=== PATIENT | female | born 1965 | race Caucasian/White ===

== ENCOUNTER 2016-09-11 19:09 | Emergency (ER) | payer MEDICARE, MEDICAID ==
[~2016-09-11] VITALS: Ht 160 cm; Wt 96.2 kg
[~2016-09-11 19:09] MED LIST: ALBUTEROL2 PUFFS/17 IN; ALPRAZOLAM1 MG PO; AMOXICILLIN 50500 MG PO; AMOXIL500 MG PO; AZITHROMYCIN250 MG PO; DIFLUCAN150 MG PO; FLEXERIL10 MG PO; GABAPENTIN300 MG PO; HORMONE PATCH TD; LODINE200 MG PO; LORTAB 5/500 501 TAB PO; LORTAB 500 MG-71 TAB PO; MEDROL 4MG. DOSE4 MG PO; MOBIC7.5 MG PO; NAPROSYN 375MG375 MG PO; NOMEDS XX; NORCO 325 MG-101 TAB PO; OXYBUTYNIN CHLOR5 MG PO; PERCOCET 10 MG1 EACH PO; PERCOCET 5/3251 EACH PO; PREDNISONE 1MG.1 MG PO; PROZAC 20MG CAP20 MG PO; TOPAMAX50 MG PO; TRAMADOL 50MG T50 MG PO; VICODIN 5/500 T1 TAB PO; XANAX0.5 MG NG; [UNRECOGNIZED DRUG - OTHER] PO
[2016-09-11 19:39] LABS: HEMOGLOBIN 13.6 g/dL (12.2-16.2); LYMPH # 1.6 K/mm3 (0.7-4.5); LYMPH % 32.6 % (10-50.0)
--- NOTE | 2016-09-11 19:46 | Emergency Room Report ---
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 N Clinical Suspician of Infection? N Mental Status: 1 - Regular (Normal Baseline) Sepsis Risk:Low Sepsis Risk Have you (or family members/close friends) recently traveled outside the [place]? N If Yes, where/when: Have you had exposure to infectious disease within the past month? N TB? Other? Specify: Source patient, RN notes reviewed, old records Exam Limitations clinical condition Comment pt with rt sided rib pain over the last 3 days with hx of fall about 1 week ago with no fever or hemoptysis Cardiac Chest Pain Chest pain indicative of cardiac No Timing/Duration this evening Severity moderate ALLERGIES Coded Allergies: acetaminophen (From DARVOCET-N) (Mild, 09/11/16) erythromycin base (Mild, 09/11/16) propoxyphene (From DARVOCET-N) (Mild, 09/11/16) Home Medications Reported Medications Oxycodone 10 Mg\[id number] (Oxycodone-Acetaminophen 10-325) 1 TAB PO TID Gabapentin (Gabapentin 300MG) 300 MG PO TID History Medical History General CAD? No Angina: Yes [place]: No Hypertension? No Hyperlipidemia? No CHF? No DVT? No PE? No COPD? No Asthma? No Anemia? No GERD? No Gastric ulcers? No GI Bleed? No Hernia? No Thyroid Problems? No Hypothyroidism? No CVA? No Seizures? No Diabetes? No Renal Insuffiency? No End Stage Renal Disease? No UTI? Yes Stones? Yes GB Disease: Yes Nephritic Syndrome? No Asplenia? No Hepatitis? No Sickle Cell Disease? No Arthritis? No Migraines? No Cataracts? No Glaucoma? No MRSA? No HIV? No TB? No Anxiety? No Depression? No Cancer? Yes Site: UTERINE More? No Immunization Hx DT/Tetanus 05/24/10 Flu THIS YR Pneumonia NEVER Surgical Hx Previous Surgery?Y Hysterect R. 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 Respiratory denies cough, denies shortness of breath, denies wheezing Cardiovascular see HPI, chest pain, denies palpitations, denies syncope Gastrointestinal denies abdominal pain, denies diarrhea, denies vomiting Genitourinary denies: dysuria, frequency, hesitancy, hematuria. Musculoskeletal denies back pain, denies joint pain, denies joint swelling, denies neck pain Skin denies rash Psychiatric/Neurological denies headache, denies seizure Physical Exam Vital Signs Vital Signs Date Time Temp Pulse Resp B/P Pulse O2 O2 Flow FiO2 Ox Delivery Rate 09/11 1945 68 20 120/75 96 09/11 1909 97.8 68 20 161/79 96 - WBC >12,000 or <4,000 or 10% bands? 2 or more SIRS Criteria Met? B/P:120/75 MAP:106 Creatinine >2.0? UA output<0.5ml/kg/hr for 2 hrs? Platelet count >100,000? Lactate >2.0mmol/1? INR >1.2 or PTT > than 60 sec? Evidence of Organ Dysfunction? Provider documented clinical suspician of infection? N Sepsis Criteria Count: 1 Sepsis Risk: Low Sepsis Risk General Appearance no apparent distress Eye Exam - bilateral eye PERRL, bilateral eye EOMI Ear, Nose, Throat normal ENT inspection Neck supple Respiratory Status No: respiratory distress. Lung Sounds bilateral: lungs clear. 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 No Results/Orders Laboratory Tests 09/11/161909: Sodium 145, Potassium 3.8, Chloride 107, Carbon Dioxide 31, BUN 13, Creatinine 0.8, Estimated Creat Clear 128, Estimated GFR (MDRD) 76, Glucose 98, Calcium 8.7 , Total Bilirubin 0.3, AST 25, ALT 42, Alkaline Phosphatase 113, Creatine Kinase 136, CK-MB (CK-2) Rel Index 1.8, CK and CKMB Interp 2.5, Troponin I < 0.02, Total Protein 7.3, Albumin 3.6, Globulin 3.7 H, Albumin/Globulin Ratio 1.0 L, WBC 4.9, RBC 4.50, Hgb 13.6, Hct 41.8, MCV 92.9, RDW 12.3, Plt Count 243, MPV 5.5 L, Gran % 58.0, Gran # 2.8, Lymphocytes % 32.6, Monocytes % 6.3, Eosinophils % 2.5, Basophils % 0.7, Lymphocytes # 1.6, Monocytes # 0.3, Eosinophils # 0.1, Basophils # 0.0, PUBS MCHC 32.6, MCH 30.3 Current Medication Orders Sig/Paco Start time Last Medication Dose Route Stop Time Status Admin Ketorolac 30 MG ONCE ONE 09/11 2014 AC Tromethamine IV 09/12 2015 Methylprednisolone 125 MG ONCE ONE 09/11 2014 AC Sodium Succinate IV 09/11 2016 Tramadol HCl 1 ALICIA ONCE ONE 09/11 2014 AC PO 09/11 2016 Tramadol HCl 0 .STK-MED ONE 09/11 2006 DC PO Methylprednisolone 0 .STK-MED ONE 09/11 2004 DC Sodium Succinate .ROUTE Ketorolac 0 .STK-MED ONE 09/12 2003 DC Tromethamine .ROUTE Sodium Chloride 10 ML PRN PRN 09/11 1929 AC IV 09/12 1924 Orders Procedure Date/time Status ELECTROCARDIOGRAM REQUEST 09/11 1924 Active CHEST(2 VIEWS-NOT PORTABLE) 09/11 1924 Active IV SALINE LOCK 09/11 1924 Active CBC WITH AUTO DIFF 09/11 1924 Complete CARDIAC ENZYMES 09/11 1924 Complete CHEM 12 PROFILE 09/11 1924 Complete CM/EKG CM/supervisor drying Rhythm Normal Sinus Rhythm EKG non-spec. ST/Twave chgs XRAY/CT/US XRAY/CT/US XRAY chest XR interpretation by reviewed by me Xray Results normal/NAD Departure Departure Time of Disposition 2000 Disposition DC Home or Self Care(routine) Clinical Impression Primary Impression: Pleurisy Condition STABLE Referrals NO REFERRAL Patient Instructions DI for Pleurisy Additional Instructions use meds and see pcp for follow up Discharge Counseling Counseled pt/family regarding diagnosis, test results, medications/RX, follow up needs Prescriptions Current Visit Scripts Prednisone (Prednisone 20MG) 20 MG PO BID #10 TAB ED Critical Care Critical Care No at 2011
--- NOTE | 2016-09-11 19:46 | Emergency Room Report ---
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 N Clinical Suspician of Infection? N Mental Status: 1 - Regular (Normal Baseline) Sepsis Risk:Low Sepsis Risk Have you (or family members/close friends) recently traveled outside the [place]? N If Yes, where/when: Have you had exposure to infectious disease within the past month? N TB? Other? Specify: Source patient, RN notes reviewed, old records Exam Limitations clinical condition Comment pt with rt sided rib pain over the last 3 days with hx of fall about 1 week ago with no fever or hemoptysis Cardiac Chest Pain Chest pain indicative of cardiac No Timing/Duration this evening Severity moderate ALLERGIES Coded Allergies: acetaminophen (From DARVOCET-N) (Mild, 09/11/16) erythromycin base (Mild, 09/11/16) propoxyphene (From DARVOCET-N) (Mild, 09/11/16) Home Medications Reported Medications Oxycodone 10 Mg\[id number] (Oxycodone-Acetaminophen 10-325) 1 TAB PO TID Gabapentin (Gabapentin 300MG) 300 MG PO TID History Medical History General CAD? No Angina: Yes [place]: No Hypertension? No Hyperlipidemia? No CHF? No DVT? No PE? No COPD? No Asthma? No Anemia? No GERD? No Gastric ulcers? No GI Bleed? No Hernia? No Thyroid Problems? No Hypothyroidism? No CVA? No Seizures? No Diabetes? No Renal Insuffiency? No End Stage Renal Disease? No UTI? Yes Stones? Yes GB Disease: Yes Nephritic Syndrome? No Asplenia? No Hepatitis? No Sickle Cell Disease? No Arthritis? No Migraines? No Cataracts? No Glaucoma? No MRSA? No HIV? No TB? No Anxiety? No Depression? No Cancer? Yes Site: UTERINE More? No Immunization Hx DT/Tetanus 05/24/10 Flu THIS YR Pneumonia NEVER Surgical Hx Previous Surgery?Y Hysterect R. 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 Respiratory denies cough, denies shortness of breath, denies wheezing Cardiovascular see HPI, chest pain, denies palpitations, denies syncope Gastrointestinal denies abdominal pain, denies diarrhea, denies vomiting Genitourinary denies: dysuria, frequency, hesitancy, hematuria. Musculoskeletal denies back pain, denies joint pain, denies joint swelling, denies neck pain Skin denies rash Psychiatric/Neurological denies headache, denies seizure Physical Exam Vital Signs Vital Signs Date Time Temp Pulse Resp B/P Pulse O2 O2 Flow FiO2 Ox Delivery Rate 09/11 1945 68 20 120/75 96 09/11 1909 97.8 68 20 161/79 96 - WBC >12,000 or <4,000 or 10% bands? 2 or more SIRS Criteria Met? B/P:120/75 MAP:106 Creatinine >2.0? UA output<0.5ml/kg/hr for 2 hrs? Platelet count >100,000? Lactate >2.0mmol/1? INR >1.2 or PTT > than 60 sec? Evidence of Organ Dysfunction? Provider documented clinical suspician of infection? N Sepsis Criteria Count: 1 Sepsis Risk: Low Sepsis Risk General Appearance no apparent distress Eye Exam - bilateral eye PERRL, bilateral eye EOMI Ear, Nose, Throat normal ENT inspection Neck supple Respiratory Status No: respiratory distress. Lung Sounds bilateral: lungs clear. 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 No Results/Orders Laboratory Tests 09/11/161909: Sodium 145, Potassium 3.8, Chloride 107, Carbon Dioxide 31, BUN 13, Creatinine 0.8, Estimated Creat Clear 128, Estimated GFR (MDRD) 76, Glucose 98, Calcium 8.7 , Total Bilirubin 0.3, AST 25, ALT 42, Alkaline Phosphatase 113, Creatine Kinase 136, CK-MB (CK-2) Rel Index 1.8, CK and CKMB Interp 2.5, Troponin I < 0.02, Total Protein 7.3, Albumin 3.6, Globulin 3.7 H, Albumin/Globulin Ratio 1.0 L, WBC 4.9, RBC 4.50, Hgb 13.6, Hct 41.8, MCV 92.9, RDW 12.3, Plt Count 243, MPV 5.5 L, Gran % 58.0, Gran # 2.8, Lymphocytes % 32.6, Monocytes % 6.3, Eosinophils % 2.5, Basophils % 0.7, Lymphocytes # 1.6, Monocytes # 0.3, Eosinophils # 0.1, Basophils # 0.0, PUBS MCHC 32.6, MCH 30.3 Current Medication Orders Sig/Paco Start time Last Medication Dose Route Stop Time Status Admin Ketorolac 30 MG ONCE ONE 09/11 2014 AC Tromethamine IV 09/12 2015 Methylprednisolone 125 MG ONCE ONE 09/11 2014 AC Sodium Succinate IV 09/11 2016 Tramadol HCl 1 ALICIA ONCE ONE 09/11 2014 AC PO 09/11 2016 Tramadol HCl 0 .STK-MED ONE 09/11 2006 DC PO Methylprednisolone 0 .STK-MED ONE 09/11 2004 DC Sodium Succinate .ROUTE Ketorolac 0 .STK-MED ONE 09/12 2003 DC Tromethamine .ROUTE Sodium Chloride 10 ML PRN PRN 09/11 1929 AC IV 09/12 1924 Orders Procedure Date/time Status ELECTROCARDIOGRAM REQUEST 09/11 1924 Active CHEST(2 VIEWS-NOT PORTABLE) 09/11 1924 Active IV SALINE LOCK 09/11 1924 Active CBC WITH AUTO DIFF 09/11 1924 Complete CARDIAC ENZYMES 09/11 1924 Complete CHEM 12 PROFILE 09/11 1924 Complete CM/EKG CM/diabetologist Rhythm Normal Sinus Rhythm EKG non-spec. ST/Twave chgs XRAY/CT/US XRAY/CT/US XRAY chest XR interpretation by reviewed by me Xray Results normal/NAD Departure Departure Time of Disposition 2000 Disposition DC Home or Self Care(routine) Clinical Impression Primary Impression: Pleurisy Condition STABLE Referrals NO REFERRAL Patient Instructions DI for Pleurisy Additional Instructions use meds and see pcp for follow up Discharge Counseling Counseled pt/family regarding diagnosis, test results, medications/RX, follow up needs Prescriptions Current Visit Scripts Prednisone (Prednisone 20MG) 20 MG PO BID #10 TAB ED Critical Care Critical Care No at 2011
[2016-09-11 19:55] LABS: BUN 13 mg/dL (7-18)
[2016-09-11 19:58] LABS: GFR (ESTIMATED) 76 ML/MIN (59-)
[2016-09-11] MEDS ORDERED: PREDNISONE 20MG20 MG PO (20:11)
[2016-09-11 20:21] VITALS: BP 120/82
--- NOTE | 2016-09-11 21:47 | RADIOLOGY REPORT PS360 ---
CHEST(2 VIEWS-NOT PORTABLE) INDICATION: Right chest wall pain COMPARISON: AP supine chest 06/08/2013 FINDINGS: The lung sanchez are well expanded and appear clear of infiltrate. The cardiomediastinal silhouette is borderline in size and vascularity is normal. The costophrenic angles are clear. The bony thorax is normal. IMPRESSION: Normal chest.
== END 2016-09-11 20:52 | disposition home or self-care (01) ==
LOC: ER 19:09
PROVIDERS: Emergency Medicine
DX: R09.1 Pleurisy (principal)

== ENCOUNTER 2016-11-15 10:03 | Emergency (ER) | payer MEDICARE, MEDICAID ==
[~2016-11-15] VITALS: Ht 160 cm; Wt 86.2 kg
[~2016-11-15 10:03] MED LIST changes: +PREDNISONE 20MG20 MG PO
--- NOTE | 2016-11-15 10:09 | Emergency Room Report ---
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 N Clinical Suspician of Infection? N Mental Status: 1 - Regular (Normal Baseline) Sepsis Risk:Low Sepsis Risk Have you (or family members/close friends) recently traveled outside the [place]? N If Yes, where/when: Have you had exposure to infectious disease within the past month? TB? Other? Specify: Comment The patient was brought in by ambulance for bleeding from the mouth and nose and abdominal pain. The patient says she was driving down the road and felt something running down her face and chin, wiped it with her hand, and saw it was blood. She says she does not know where it was coming from, but suspects it is from her nose. She says she then began vomiting up some blood. She says that her daughter says that something must have popped inside of her belly because she was vomiting so much blood. She tells me that she did not really have a sensation that something popped inside of her belly, her daughter simply said this. She says she only has some slight abdominal pain. She was nauseated, but got Phenergan during transport and her nausea is gone. She is not on any blood thinners. ALLERGIES Coded Allergies: acetaminophen (From DARVOCET-N) (Mild, 11/15/16) erythromycin base (Mild, 11/15/16) propoxyphene (From DARVOCET-N) (Mild, 11/15/16) Home Medications Active Scripts Prednisone (Prednisone 20MG) 20 MG PO BID #10 TAB Prov: 09/11/16 Reported Medications Oxycodone 10 Mg\\[id number] (Oxycodone-Acetaminophen 10-325) 1 TAB PO TID Gabapentin (Gabapentin 300MG) 300 MG PO TID History Medical History General CAD? No Angina: Yes [place]: No Hypertension? No Hyperlipidemia? No CHF? No DVT? No PE? No COPD? No Asthma? No Anemia? No GERD? No Gastric ulcers? No GI Bleed? No Hernia? No Thyroid Problems? No Hypothyroidism? No CVA? No Seizures? No Diabetes? No Renal Insuffiency? No End Stage Renal Disease? No UTI? Yes Stones? Yes GB Disease: Yes Nephritic Syndrome? No Asplenia? No Hepatitis? No Sickle Cell Disease? No Arthritis? No Migraines? No Cataracts? No Glaucoma? No MRSA? No HIV? No TB? No Anxiety? No Depression? No Cancer? Yes Site: UTERINE More? No Immunization Hx Ped.Immunizations UTD Yes DT/Tetanus 05/24/10 Flu THIS YR Pneumonia NEVER Surgical Hx Previous Surgery?Y Hysterect R. 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 Gastrointestinal abdominal pain, nausea, vomiting Physical Exam Vital Signs Vital Signs Date Time Temp Pulse Resp B/P Pulse O2 O2 Flow FiO2 Ox Delivery Rate 11/15 1107 79 20 170/97 98 11/15 1005 98.0 73 18 189/84 98 - WBC >12,000 or <4,000 or 10% bands? 2 or more SIRS Criteria Met? B/P:189/84 MAP:119 Creatinine >2.0? UA output<0.5ml/kg/hr for 2 hrs? Platelet count >100,000? Lactate >2.0mmol/1? INR >1.2 or PTT > than 60 sec? Evidence of Organ Dysfunction? Provider documented clinical suspician of infection? N Sepsis Criteria Count: 0 Sepsis Risk: Low Sepsis Risk General Appearance normal appearance, WD/WN Eye Exam - bilateral eye normal exam, bilateral eye PERRL, bilateral eye EOMI Ear, Nose, Throat hearing grossly normal, dried blood around her nose, mouth, and chin. Most of the dried blood around the nose seems to be on the LEFT side with a small amount of dried blood in the LEFT nares. No dried blood in the RIGHT nares. No active bleeding. Neck normal inspection, non-tender, supple, full range of motion Respiratory Status Yes: trachea midline, chest symmetrical, non tender chest. No: respiratory distress. Lung Sounds bilateral: normal breath sounds, lungs clear. 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 No Results/Orders Laboratory Tests 11/15/16 1110: Urine Color STRAW, Urine Appearance CLEAR, Urine pH 7.5, Ur Specific [place] <= 1.005, Urine Protein NEGATIVE, Urine Ketones NEGATIVE, Urine Blood NEGATIVE, Urine Nitrate NEGATIVE, Urine Bilirubin NEGATIVE, Urine Urobilinogen 0.2, Ur Leukocyte Esterase NEGATIVE, Urine WBC OCC, Ur Squamous Epith Cells OCC, Urine Bacteria 1+, Urine Glucose NEGATIVE 11/15/16 1000: Sodium 142, Potassium 3.6, Chloride 107, Carbon Dioxide 27, BUN 14, Creatinine 1.0, Estimated Creat Clear 92, Estimated GFR (MDRD) 59, Glucose 110 H, Calcium 8.8, Total Bilirubin 0.4, AST 24, ALT 52, Alkaline Phosphatase 114, Total Protein 7.9, Albumin 3.9, Globulin 4.0 H, Albumin/Globulin Ratio 1.0 L, Amylase 53, Lipase 110, WBC 6.1, RBC 4.58, Hgb 14.2, Hct 42.2, MCV 92.2, RDW 12.4, Plt Count 293, MPV 5.4 L, Gran % 59.8, Gran # 3.7, Lymphocytes % 30.5, Monocytes % 6.2, Eosinophils % 2.7, Basophils % 0.8, Lymphocytes # 1.9, Monocytes # 0.4, Eosinophils # 0.2, Basophils # 0.1, PUBS MCHC 33.7, MCH 31.1 Current Medication Orders Sig/Paco Start time Last Medication Dose Route Stop Time Status Admin Iopamidol 75 ML ONCE ONE 11/15 1200 DC 11/15 IV 11/15 1201 1156 Sodium Chloride 10 ML PRN PRN 11/15 1200 AC 11/15 IV 11/15 1325 1156 Orders Procedure Date/time Status DIET-NOTHING BY MOUTH 11/15 L Active URINALYSIS/COMPLETE 11/[address] ABD/PELVIS REQ 11/15 1058 Complete LIPASE 11/15 1021 Complete CBC WITH AUTO DIFF 11/15 1021 Complete CHEM 12 PROFILE 11/15 1021 Complete AMYLASE 11/15 1021 Complete CM/EKG CM/EKG Comments EKG interpreted by David Hinkle MD: Rhythm: sinus Rate: 78 [place]: normal Ectopy: none Conduction: normal ST Segment Changes: none T Wave Changes: none Q Waves: none No evidence of acute ischemia or injury Normal electrocardiogram XRAY/CT/US XRAY/CT/US CT abdomen, pelvis Comment CT scan interpreted by radiologist: No acute intra-abdominal process. Nonobstructing nephrolithiasis. Renal cysts. Progress - 10:57 AM: Recheck patient. No further bleeding. She says that she feels weak, and her belly still hurts "a little bit". Examination shows tenderness LEFT upper and lower quadrant, greatest in LEFT lower quadrant. CT scan ordered. Departure Departure Disposition DC Home or Self Care(routine) Clinical Impression Primary Impression: Nosebleed Secondary Impressions: Abdominal pain, left lower quadrant Condition STABLE Referrals FIFI BARBOSA (Family) Patient Instructions DI for Abdominal Pain-Adult, DI for Nosebleed Additional Instructions Additional instructions for NOSE BLEED: Avoid blowing your nose, bending forward at the waist, or straining. Avoid all bloodthinners for 2 days, including aspirin. If nosebleed starts again, squeeze your nostrils together with thumb and forefinger for 5 minutes. If unable to stop the bleeding, return to the emergency department. Additional instructions for ABDOMINAL PAIN: See your physician as soon as possible for further evaluation. Return immediately if worsening abdominal pain, vomiting, shortness of breath, fever, vomiting of blood or abdominal distention. ED Critical Care Critical Care No at 1232
[2016-11-15 10:29] LABS: HEMOGLOBIN 14.2 g/dL (12.2-16.2); LYMPH # 1.9 K/mm3 (0.7-4.5); LYMPH % 30.5 % (10-50.0)
[2016-11-15 11:20] LABS: URINE BILIRUBIN - DIPSTICK NEGATIVE (NEG); URINE BLOOD NEGATIVE (NEG)
[2016-11-15 11:36] LABS: URINE SQUAMOUS CELLS OCC #/hpf (0-5)
--- NOTE | 2016-11-15 12:26 | RADIOLOGY REPORT PS360 ---
CT ABD PELVIS W/ CONTRAST CLINICAL INDICATION: Right SIDE ABDOMINAL PAIN, lower abdominal pain ORDERING PHYSICIAN: David Hinkle MD PATIENT AGE: 51 years COMPARISON: 07/30/2014 TECHNIQUE: Axial images obtained with sagittal and coronal reformats. PROCEDURE: Oral Contrast: None IV Contrast: 75 mL's. FINDINGS: Lower chest has an unremarkable appearance. The liver, spleen, adrenal glands, and pancreas has an unremarkable appearance. There has been a prior cholecystectomy. No biliary dilatation. There are bilateral renal cortical cyst. Nonobstructing stone is present in the upper pole the right kidney. No ureteral calculi or hydronephrosis is evident. No bladder stones. No intestinal obstruction or free air is evident. There has been a prior hysterectomy. The appendix is not clearly identified however, there is no secondary signs of appendicitis No acute bony anomalies. IMPRESSION: 1. No acute intra-abdominal or pelvic pathology apparent. 2. Right nephrolithiasis. No obstructing ureteral calculi. 3. Bilateral renal cortical cysts. Cystic nature may be confirmed with ultrasound if clinically warranted
[2016-11-15 12:37] VITALS: BP 170/97
== END 2016-11-15 12:43 | disposition home or self-care (01) ==
LOC: ER 10:03
PROVIDERS: Emergency Medicine
DX: R10.32 Left lower quadrant pain (principal); R04.0 Epistaxis
CPT/HCPCS: Q9967

== ENCOUNTER 2017-03-13 13:54 | Emergency (ER) | payer MEDICARE ==
[~2017-03-13] VITALS: Ht 160 cm; Wt 82.6 kg
[~2017-03-13 13:54] MED LIST changes: +LEVAQUIN500 MG PO; +TESSALON PERLE100 MG PO
--- NOTE | 2017-03-13 14:52 | Urgent Treatment Center Report ---
History of Present Issue Date/Time Seen by Provider 03/13/17 0577 Visit Reason Pt arrived:Walked Presenting Problem:PT COMPLAINS OF LEFT LEG PAIN BELOW THE KNEE LATERAL. NO SWELLING, OR WARMTH NOTED. PT STATES BOTH LEGS HURTS BUT THE LEFT LEG HURTS WORSE PT STATES THE PAIN RADIATES TO HER HIP. Location if Accident: Onset of symptoms date/time:/ or onset unknown for:MEDICAL HX UNKNOWN Have you (or family members/close friends) recently traveled outside the [place]? N If Yes, where/when: Have you had exposure to infectious disease within the past month? TB? Other? Specify: here w/ daughter who is being seen. "while we are here I want to be sure I don't have a blood clot". Hx of yue leg pain w/ left leg getting worse x one week. Pain primarily in left calf but radiates to left hip at times. Denies swelling or redness. Has noticed more veins in left calf compared to right. pain worse w / ambulation. Hasn't taken or tried anything for pain. Denies hx of DVT. No known family hx of DVTs. Nonsmoker. No blood clotting disorders or current medications. No recent travel. Denies any known injury. PCP Dr. Osorio in [place]. Source patient Exam Limitations no limitations ALLERGIES Coded Allergies: iopamidol (Intermediate, LEGS SHAKY 11/16/16) erythromycin base (Mild, 11/15/16) propoxyphene (From DARVOCET-N) (Mild, 11/15/16) History Medical History General CAD? No Angina: Yes [place]: No Hypertension? No Hyperlipidemia? No CHF? No DVT? No PE? No COPD? No Asthma? No Anemia? No GERD? No Gastric ulcers? No GI Bleed? No Hernia? No Thyroid Problems? No Hypothyroidism? No CVA? No Seizures? No Diabetes? No Renal Insuffiency? No UTI? Yes Stones? Yes GB Disease: Yes Nephritic Syndrome? No Asplenia? No Hepatitis? No Sickle Cell Disease? No Arthritis? No Migraines? No Cataracts? No Glaucoma? No MRSA? No HIV? No TB? No Anxiety? No Depression? No Cancer? Yes Site: UTERINE More? No Immunization HX DT/Tetanus 05/24/10 Flu THIS YR Pneumonia NEVER Surgical Hx Previous Surgery?Y Hysterect R. BREAST BIOPSY GALLBLADDER PELVIC BIOPSY Oral Surgery KIDNEY STENTS Family History Family HX Diabetes Yes CAD No Hypertension Yes Hyperlipidemia Yes Cancer Yes TB Yes Social History Smoking Hx Smoker: Never Smoker Tobacco: No Packs/day N/A Alcohol Alcohol: No Review of Systems All Other Systems Reviewed and Negative Constitutional denies fever, denies malaise, denies weakness Musculoskeletal see HPI, denies back pain, denies joint pain, denies joint swelling, denies muscle stiffness Skin see HPI, denies lesions, denies lumps Psychiatric/Neurological denies numbness, denies tingling Physical Exam Vital Signs Vital Signs Date Time Temp Pulse Resp B/P Pulse O2 O2 Flow FiO2 Ox Delivery Rate 03/13 1600 98.0 83 20 128/81 98 03/13 1423 98.0 83 20 128/81 98 General Appearance no apparent distress, dishelved appearance Respiratory Status No: respiratory distress. Lung Sounds anterior: lungs clear. posterior: lungs clear. bilateral: lungs clear. Cardiovascular regular rate/rhythm, no peripheral edema, no murmur Peripheral Pulses Pulses normal Yes (DP/PT) Back gait normal Extremities normal range of motion (left ankle, knee, hip), normal inspection ( yue lower legs), right calf 41.5cm, left calf 42cm, tenderness generalized throughout left lower leg but more prominent left calf, + Gerard's Strength 5 Lower Ext (L), 5 Lower Ext (R) Neurologic alert, no motor/sensory deficits, oriented x 3 Skin normal color, warm/dry Medical Decision Making LABS/Meds/Orders Pt receiving controlled substance in ED? No Results/Orders Current Medication Orders Sig/Paco Start time Last Medication Dose Route Stop Time Status Admin Enoxaparin Sodium 120 MG ONCE ONE 03/13 1545 DC 03/13 SC 03/13 1546 1558 Consult MD Physician Consult 1 Consult/PCP Dr. Osorio's office, PCP Time Called 1530 Reason Pt. Condition Comments Spoke to Dr. Quiroz in PCP office. Pt last seen in Jul 2016. "not followed regularly for any chronic conditions". Only risk factor hx of breast and uterine cancer. Comfortable with pt not having doppler today. Suggest treatment w/ lovenox and have pt return tomorrow for ultrasound. Physician Consult 2 Consult/PCP tay Goyal Time Called 1537 Reason lovenox dosing Comments Recommends 1.5mg/kg (120mg) lovenox today with follow up pending doppler results. Progress UTC Progress Notes 1 Date 03/13/17 Time 1510 Comment Vascular lab unable to perform doppler this evening due to several add ons. Can see patient tomorrow with outpt order. [facility] Progress Notes 2 Date 03/13/17 Time 1558 Comment Called to make appt for tomorrow. Requires precert. Spoke to Rosalie assistant business manager. We do not have enough information to precert. Pt needs to FU with PCP. Called Dr. Osorio's office. pt can be seen tomorrow morning at 9a. pt aware and agrees to follow up first thing in the morning but to return to ER for new or worsening symptoms. Procedures General/Other Procedure [facility] Procedure Note Date 03/13/17 Departure Departure Time of Disposition 1542 Disposition DC Home or Self Care(routine) Clinical Impression Primary Impression: Left leg pain Condition STABLE Referrals NO REFERRAL FU with primary care in the morning. Appt already made for 9a at Dr. Osorio's office. Return to ER for new or worsening symptoms. 911 for difficulty breathing , chest pain, severe headache or uncontrollable bleeding Patient Instructions DI for Deep Vein Thrombosis, DI for Leg Pain, Enoxaparin Injection Additional Instructions You have had lovenox, as we discussed, take precautions to prevent bleeding FU with primary care in the morning. Discharge Counseling Counseled pt/family regarding diagnosis, medications/RX, home care, follow up needs at [phone]
--- NOTE | 2017-03-13 14:52 | Urgent Treatment Center Report ---
History of Present Issue Date/Time Seen by Provider 03/13/17 3947 Visit Reason Pt arrived:Walked Presenting Problem:PT COMPLAINS OF LEFT LEG PAIN BELOW THE KNEE LATERAL. NO SWELLING, OR WARMTH NOTED. PT STATES BOTH LEGS HURTS BUT THE LEFT LEG HURTS WORSE PT STATES THE PAIN RADIATES TO HER HIP. Location if Accident: Onset of symptoms date/time:/ or onset unknown for:MEDICAL HX UNKNOWN Have you (or family members/close friends) recently traveled outside the [place]? N If Yes, where/when: Have you had exposure to infectious disease within the past month? TB? Other? Specify: here w/ daughter who is being seen. "while we are here I want to be sure I don't have a blood clot". Hx of yue leg pain w/ left leg getting worse x one week. Pain primarily in left calf but radiates to left hip at times. Denies swelling or redness. Has noticed more veins in left calf compared to right. pain worse w / ambulation. Hasn't taken or tried anything for pain. Denies hx of DVT. No known family hx of DVTs. Nonsmoker. No blood clotting disorders or current medications. No recent travel. Denies any known injury. PCP Dr. Osorio in [place]. Source patient Exam Limitations no limitations ALLERGIES Coded Allergies: iopamidol (Intermediate, LEGS SHAKY 11/16/16) erythromycin base (Mild, 11/15/16) propoxyphene (From DARVOCET-N) (Mild, 11/15/16) History Medical History General CAD? No Angina: Yes [place]: No Hypertension? No Hyperlipidemia? No CHF? No DVT? No PE? No COPD? No Asthma? No Anemia? No GERD? No Gastric ulcers? No GI Bleed? No Hernia? No Thyroid Problems? No Hypothyroidism? No CVA? No Seizures? No Diabetes? No Renal Insuffiency? No UTI? Yes Stones? Yes GB Disease: Yes Nephritic Syndrome? No Asplenia? No Hepatitis? No Sickle Cell Disease? No Arthritis? No Migraines? No Cataracts? No Glaucoma? No MRSA? No HIV? No TB? No Anxiety? No Depression? No Cancer? Yes Site: UTERINE More? No Immunization HX DT/Tetanus 05/24/10 Flu THIS YR Pneumonia NEVER Surgical Hx Previous Surgery?Y Hysterect R. BREAST BIOPSY GALLBLADDER PELVIC BIOPSY Oral Surgery KIDNEY STENTS Family History Family HX Diabetes Yes CAD No Hypertension Yes Hyperlipidemia Yes Cancer Yes TB Yes Social History Smoking Hx Smoker: Never Smoker Tobacco: No Packs/day N/A Alcohol Alcohol: No Review of Systems All Other Systems Reviewed and Negative Constitutional denies fever, denies malaise, denies weakness Musculoskeletal see HPI, denies back pain, denies joint pain, denies joint swelling, denies muscle stiffness Skin see HPI, denies lesions, denies lumps Psychiatric/Neurological denies numbness, denies tingling Physical Exam Vital Signs Vital Signs Date Time Temp Pulse Resp B/P Pulse O2 O2 Flow FiO2 Ox Delivery Rate 03/13 1600 98.0 83 20 128/81 98 03/13 1423 98.0 83 20 128/81 98 General Appearance no apparent distress, dishelved appearance Respiratory Status No: respiratory distress. Lung Sounds anterior: lungs clear. posterior: lungs clear. bilateral: lungs clear. Cardiovascular regular rate/rhythm, no peripheral edema, no murmur Peripheral Pulses Pulses normal Yes (DP/PT) Back gait normal Extremities normal range of motion (left ankle, knee, hip), normal inspection ( yue lower legs), right calf 41.5cm, left calf 42cm, tenderness generalized throughout left lower leg but more prominent left calf, + Gerard's Strength 5 Lower Ext (L), 5 Lower Ext (R) Neurologic alert, no motor/sensory deficits, oriented x 3 Skin normal color, warm/dry Medical Decision Making LABS/Meds/Orders Pt receiving controlled substance in ED? No Results/Orders Current Medication Orders Sig/Paco Start time Last Medication Dose Route Stop Time Status Admin Enoxaparin Sodium 120 MG ONCE ONE 03/13 1545 DC 03/13 SC 03/13 1546 1558 Consult MD Physician Consult 1 Consult/PCP Dr. Osorio's office, PCP Time Called 1530 Reason Pt. Condition Comments Spoke to Dr. Quiroz in PCP office. Pt last seen in Jul 2016. "not followed regularly for any chronic conditions". Only risk factor hx of breast and uterine cancer. Comfortable with pt not having doppler today. Suggest treatment w/ lovenox and have pt return tomorrow for ultrasound. Physician Consult 2 Consult/PCP tay Goyal Time Called 1537 Reason lovenox dosing Comments Recommends 1.5mg/kg (120mg) lovenox today with follow up pending doppler results. Progress UTC Progress Notes 1 Date 03/13/17 Time 1510 Comment Vascular lab unable to perform doppler this evening due to several add ons. Can see patient tomorrow with outpt order. [facility] Progress Notes 2 Date 03/13/17 Time 1558 Comment Called to make appt for tomorrow. Requires precert. Spoke to Rosalie wind site manager. We do not have enough information to precert. Pt needs to FU with PCP. Called Dr. Osorio's office. pt can be seen tomorrow morning at 9a. pt aware and agrees to follow up first thing in the morning but to return to ER for new or worsening symptoms. Procedures General/Other Procedure [facility] Procedure Note Date 03/13/17 Departure Departure Time of Disposition 1542 Disposition DC Home or Self Care(routine) Clinical Impression Primary Impression: Left leg pain Condition STABLE Referrals NO REFERRAL FU with primary care in the morning. Appt already made for [address]a [address] Dr[address] Osorio's office. Return to ER for new or worsening symptoms. 911 for difficulty breathing , chest pain, severe headache or uncontrollable bleeding Patient Instructions DI for Deep Vein Thrombosis, DI for Leg Pain, Enoxaparin Injection Additional Instructions You have had lovenox, as we discussed, take precautions to prevent bleeding FU with primary care in the morning. Discharge Counseling Counseled pt/family regarding diagnosis, medications/RX, home care, follow up needs at [phone]
[2017-03-13 16:00] VITALS: BP 128/81
== END 2017-03-13 16:04 | disposition home or self-care (01) ==
LOC: UTC 13:54
DX: M79.605 Pain in left leg (principal)